=== PATIENT | female | born 1955 | race Caucasian/White ===

== ENCOUNTER 2016-06-01 15:35 | Emergency (ER) | payer OTHER ==
--- NOTE | 2016-06-01 16:09 | EDM.PDOC ---
ED HPI LOWER BACK PAIN/INJURY - General Chief Complaint: Back Pain or Injury Stated Complaint: fell @ work 06/01/16 Time Seen by Provider: 06/01/16 16:07 Source of Information: Reports: Patient, RN, RN notes reviewed History Limitations: Reports: No limitations - History of Present Illness INITIAL COMMENTS - FREE TEXT/NARRATIVE: Arrives to ER from work by POV with complaint of pain in the coccyx area and head sustained from a fall at work. 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 She reports a "very brief" LOC. Denies nausea, vomiting, visual changes or neck pain. Admits to a headache. Symptom Onset Date: 06/01/16 Symptom Onset Time: 12:30 (approx. time) Timing/Duration: Reports: Sudden onset Location: Reports: other (tailbone) Quality: Reports: Ache Severity: severe Place of Occurrence: work Improves with: Reports: None Worsens with: Reports: None Context: Reports: fall Associated Symptoms: Reports: Denies symptoms - Related Data Allergies/ADRs: Allergies Allergy/AdvReac Type Severity Reaction Status Date / Time levofloxacin [From Levaquin] Allergy Unknown Other Verified 06/01/16 15:59 Home Meds: Home Meds Albuterol Sulfate 1.25 mg IH Q4HR PRN 06/01/16 [History] Aspirin 325 mg PO DAILY 06/01/16 [History] Budesonide/Formoterol [Symbicort 160-4.5 MCG] 2 puff IH BID 06/01/16 [History] Calcium Carbonate [Calcium] 750 mg PO BID 06/01/16 [History] Cholecalciferol (Vitamin D3) [Vitamin D] 5,000 unit PO DAILY 06/01/16 [History] Citalopram [Celexa] 40 mg PO DAILY 06/01/16 [History] Metoprolol Succinate [Toprol XL] 25 mg PO DAILY 06/01/16 [History] Oxybutynin [Oxybutynin ER] 5 mg PO DAILY 06/01/16 [History] Social & Family History - Family History Family Medical History: Noncontributory ED ROS GENERAL - Review of Systems Review Of Systems: ROS reveals no pertinent complaints other than HPI. ED EXAM,LOWER BACK PAIN/INJURY - Physical Exam Exam: See Below Exam Limited By: No limitations General Appearance: alert, WD/WN, no apparent distress Eye Exam: bilateral eye: normal inspection Ears: normal external exam, normal canal, hearing grossly normal, normal TMs Nose: normal inspection, normal mucosa, no blood Throat/Mouth: Normal inspection, Normal lips, Normal teeth, Normal gums, Normal oropharynx, Normal voice, No airway compromise Head: other (Tenderness to palpation at occipital scalp. No visible swelling, bruising or deformity. Skin is intact.) Neck: full range of motion Respiratory/Chest: no respiratory distress, lungs clear, normal breath sounds, no accessory muscle use, chest non-tender Cardiovascular: normal peripheral pulses, regular rate, rhythm, no edema, no gallop, no JVD, no murmur, no rub GI/Abdominal: normal bowel sounds, soft, non tender, no organomegaly, no distention, no abnormal bruit, no mass Back Exam: normal inspection, full range of motion, NT Extremities: other (acute tender to palpation at posterior elmer pelvis, sacrum and coccyx. No visible swelling, bruising or deformity. Skin is intact. ) Neurological: alert, normal mood/affect, normal dorsiflexion, CN II-XII intact, normal plantar flexion, normal gait, normal reflexes, no motor/sensory deficits , oriented x 3 Psychiatric: normal affect, normal mood Skin Exam: Warm, Dry, Intact, Normal color, No rash Course - Vital Signs Last Recorded V/S: Last Vital Signs Temp 36.6 C 06/01/16 16:11 Pulse 65 06/01/16 16:11 Resp 18 06/01/16 16:11 BP 137/94 H 06/01/16 16:11 Pulse Ox 97 06/01/16 16:11 - Radiology Interpretation Free Text/Narrative:: CT head: No sign of skull fracture or closed head injury per rad report. CT pelvis: No fractures per rad report. Departure - Departure Time of Disposition: 17:20 Disposition: Home, Self-Care 01 Condition: fair Clinical Impression: Work related injury, Concussion with brief loss of consciousness Sprain of sacroiliac joint Qualifiers: Encounter type: initial encounter Qualified Code(s): S33.6XXA - Sprain of sacroiliac joint, initial encounter Instructions: Concussion, Adult, [id number], Sacroiliac Joint Dysfunction Forms: ED Department Discharge Additional Instructions: Concussion activity precautions for 3 weeks, otherwise activities as tolerated. [place] 5mg/325mg *do not drive or work while the influence of this medication. Follow up in clinic in 4-5 days for recheck.
--- NOTE | 2016-06-01 16:58 | CT ---
Clinical history: 61-year-old female injured in a fall (brief loss of consciousness). TECHNIQUE: Volume acquisition of data emergency unenhanced CT scan of the head obtained with patient lying supine on the Siemens multi slice CT scanner [facility]. A ll data archived in the PACS system for storage and study (bone/brain windows). Interpretation: 1. Hyperostosis frontalis interna. Uniformly thick bony calvarium without sign of skull fracture, underlying brain contusion or epidura l/subdural hematoma. 2. Symmetric cerebral cortical atrophy with underlying mirror-image normal ventricular system. 3. Physiologic midline pineal and symmetric choroid plexus calcifications. 4. No ischemic infarcts or signs of acute intracerebral/intraventricular/subarachnoid bleed. 5. Atrophy but cerebellum and brainstem otherwise unremarkable. 6. Symmetric clear pneumatization of the mastoid and paranasal sinuses. CONCLUSION: No sign of skull fracture or closed head injury.
--- NOTE | 2016-06-01 17:06 | CT ---
Clinical history: 61-year-old menopausal female smoker (loss of consciousness) injuring pelvis, sacr um and coccyx posteriorly. "No skull fracture or closed head injury". Scan technique: Volume acquisition of data emergency unenhanced CT scan of the pelvis and proximal f emurs obtained with patient lying supine on the Siemens multi slice CT scanner [place], [place]. All data archived in the PAC system for storage, reformatting and study. Interpretation: 1. Dense atheromatous calcifications distal abdominal aorta and branching iliac arteries (no aneurys m or dissection). 2. Acetabular and femoral components total left hip prosthesis appear satisfactorily anchored. 3. Symmetric spacing normal-appearing SI joints and the right hip joint. 4. No sign of pelvic, sacral or coccygeal fracture. No segmental dislocation. 5. chronic reactive arthritic changes posterior articulating facets lower lumbar spine, bilaterally. CONCLUSION: No fractures.
[2016-06-01 18:12] VITALS: BP 140/80
== END 2016-06-01 18:05 | disposition home or self-care (01) ==
LOC: DL.ED 15:35
DX: S33.6XXA Sprain of sacroiliac joint, initial encounter (principal); S06.0X1A Concussion with loss of consciousness of 30 minutes or less, initial encounter; Z88.8 Allergy status to other drugs, medicaments and biological substances; Z79.82 Long term (current) use of aspirin; Z79.899 Other long term (current) drug therapy; W19.XXXA Unspecified fall, initial encounter
CPT/HCPCS: 70450; 72192; 99283

== ENCOUNTER 2017-08-08 05:58 | Day surgery (SDC) | payer OTHER ==
[2017-08-08] MEDS ORDERED: Midazolam 1 MG/ML 2 ML SDV IV ONE (05:59)
[2017-08-08] MEDS ORDERED: fentaNYL 100 MCG/2 ML SDV IV ONE (05:59)
[2017-08-08] MEDS ORDERED: Lactated Ringers 1,000 ML IV SCH (06:15)
[2017-08-08] MEDS ORDERED: Midazolam 1 MG/ML 2 ML SDV ONE (06:27)
[2017-08-08] MEDS ORDERED: fentaNYL 100 MCG/2 ML SDV ONE (06:28)
[2017-08-08] MEDS ORDERED: fentaNYL 100 MCG/2 ML SDV IVPUSH ONE ×4 (07:24→07:40)
[2017-08-08] MEDS ORDERED: Midazolam 1 MG/ML 2 ML SDV IVPUSH ONE ×2 (07:27→07:30)
--- NOTE | 2017-08-08 09:37 | OR ---
DATE: 08/08/2017 PREOPERATIVE DIAGNOSIS: Screening colonoscopy. POSTOPERATIVE DIAGNOSIS: Screening colonoscopy. PROCEDURES: Total colonoscopy with snare excision of 2 sigmoid polyps and cautery, destruction of 1 sigmoid polyp. ANESTHESIA: Conscious sedation. SPECIMEN: Polyps x2. FINDINGS: Moderate sigmoid diverticulosis and polyps x3. RECOMMENDATION: Followup screening colonoscopy, repeated 3 years. INDICATION FOR PROCEDURE: This 62-year-old female has not had a prior colonoscopy. She has no bowel function symptoms but does have a personal history of cervical uterine cancer. PROCEDURE IN DETAIL: After adequate preparation, a colonoscope was inserted into the rectum. This was passed all the way to the cecum. Confirmation of the cecum was made by visualization of the ileocecal valve, the light shining through the right lower quadrant, and by palpation. The bowel prep was good. On withdrawal of the scope, the only abnormalities noted were in the sigmoid colon. She had a relatively large 1-cm polyp pedunculated in the sigmoid colon. A snare was placed around this, clipped off, and retrieved for pathological evaluation. She had another small polyp that was easily snared, likewise clipped off, and retrieved. She had one polyp that was relatively broad-based along a haustral fold in the sigmoid. This simply was cauterized for destruction. Other than the polyps, the patient has a [id number] sigmoid diverticulosis. Rectal examination was normal. Anal examination showed some internal hemorrhoids. Air was suctioned from the colon and the scope removed. [facility] /[id number]
[2017-08-08 10:14] VITALS: BP 112/71
== END 2017-08-08 10:20 | disposition home or self-care (01) ==
LOC: DL.ENDO 05:58
PROVIDERS: ATTEND Surgery
DX: Z12.11 Encounter for screening for malignant neoplasm of colon (principal); D12.5 Benign neoplasm of sigmoid colon; K63.5 Polyp of colon; Z88.1 Allergy status to other antibiotic agents; K57.30 Diverticulosis of large intestine without perforation or abscess without bleeding; Z85.41 Personal history of malignant neoplasm of cervix uteri; Z83.71 Family history of colonic polyps
CPT/HCPCS: J2250; J3010; J7120

== ENCOUNTER 2023-05-30 01:06 | Emergency (ER) | payer MEDICARE, OTHER ==
[2023-05-30] MEDS: Sodium Chloride 0.9% 10 ML Syringe FLUSH PRN (01:17)
[2023-05-30 01:26] VITALS: BP 152/102; PULSE 124
[2023-05-30 01:26] LABS: BASOPHILS PERCENT AUTO 0.1 % (0.0-1.0); EOSINOPHILS PERCENT AUTO 0.1 % (1.0-3.0); HEMATOCRIT 42.1 % (37.0-47.0); HEMOGLOBIN 13.6 g/dL (12.0-16.0); LYMPHOCYTES PERCENT AUTO 7.4 % (20.5-50.1); MEAN CORPUSCULAR HEMOGLOBIN 29.6 pg (27.0-34.0); MEAN CORPUSCULAR HGB CONC 32.3 g/dL (33.0-35.0); MEAN CORPUSCULAR VOLUME 91.7 fL (80-100); MONOCYTES PERCENT AUTO 10.8 % (2-8); NEUTROPHILS PERCENT AUTO 81.6 % (42.2-75.2); PLATELET COUNT,PLT 434 10^3/uL (150-450); RED BLOOD CELL COUNT 4.59 10^6/uL (4.2-5.4); WHITE BLOOD CELL COUNT,WBC 17.5 10^3/uL (5.0-10.0)
[2023-05-30] MEDS: Albuterol/Ipratropium 3.0-0.5 MG/3 ML Neb Soln NEB ONE (01:34)
[2023-05-30] MEDS: methylPREDNISolone Sodium Succinate 125 MG/2 ML SDV IVPUSH ONE (01:34)
[2023-05-30 01:40] LABS: INR 1.4 (0.9-1.2); PROTHROMBIN TIME 14.3 SEC (9.0-12.0); PTT,PARTIAL THROMBOPLSTIN TIME 26.3 SEC (22.0-34.0)
[2023-05-30 01:43] LABS: ALBUMIN 2.9 g/dL (3.4-5.0); BILIRUBIN TOTAL 0.7 mg/dL (0.2-1.0); C-REACTIVE PROTEIN 12.08 ng/dL (<=0.50); CALCIUM 9.5 mg/dL (8.5-10.1); EST CRCL DRUG DOSING (CG) 37.6 mL/min; MAGNESIUM 1.6 mg/dL (1.8-2.4)
[2023-05-30 01:44] LABS: A/G RATIO 0.71
[2023-05-30 01:49] LABS: LACTIC ACID 2.7 mmol/L (0.4-2.0)
[2023-05-30] MEDS: Aspirin 81 MG Tab.Chew PO ONE (01:56)
[2023-05-30] MEDS: Magnesium Sulfate/Water 2 GM in Premix Bag 1 BAG IV ONE (01:57)
[2023-05-30 02:03] LABS: APPEARANCE,URINE CLOUDY (CLEAR); BILIRUBIN,URINE MODERATE (NEGATIVE); COLOR,URINE DARK YELLOW (YELLOW); GLUCOSE,URINE NEGATIVE (NEGATIVE); KETONES,URINE TRACE (NEGATIVE); LEUKOCYTE ESTERASE,URINE NEGATIVE (NEGATIVE); NITRITE,URINE NEGATIVE (NEGATIVE); OCCULT BLOOD,URINE MODERATE (NEGATIVE); PH,URINE 5.5 (5.0-9.0); PROTEIN,URINE >=300 (NEGATIVE)
[2023-05-30] MEDS: Piperacillin/Tazobactam 4.5 GM in Sodium Chloride 0.9% 100 ML IV ONE (02:03)
[2023-05-30 02:07] LABS: AMPHETAMINES,URINE NEGATIVE (NEGATIVE); BARBITURATES,URINE NEGATIVE (NEGATIVE); BENZODIAZEPINE,URINE NEGATIVE (NEGATIVE); MDMA (ECSTASY), URINE NEGATIVE (NEGATIVE); METHADONE,URINE NEGATIVE (NEGATIVE); METHAMPHETAMINES,URINE NEGATIVE (NEGATIVE); OPIATES,URINE NEGATIVE (NEGATIVE); OXYCODONE,URINE NEGATIVE (NEGATIVE); PHENCYCLIDINE,URINE NEGATIVE (NEGATIVE); TCA,URINE NEGATIVE (NEGATIVE)
[2023-05-30 02:09] LABS: CORONAVIRUS COVID-19 NAA NEGATIVE (NEGATIVE); INFLUENZA A NAA NEGATIVE (NEGATIVE); INFLUENZA B NAA NEGATIVE (NEGATIVE); RESPIRATORY SYNCYTIAL VIR NAA NEGATIVE (NEGATIVE)
[2023-05-30 02:14] LABS: AMORPHOUS SEDIMENT,URINE FEW /HPF (NOT SEEN); BACTERIA,URINE MODERATE /HPF (0-FEW/HPF); EPITHELIAL CELLS,URINE MANY /HPF (NOT SEEN); MUCUS,URINE MODERATE /LPF (NOT SEEN); RBC,URINE 0-5 /HPF (0-5); WBC,URINE 20-30 /HPF (0-5/HPF)
== END 2023-05-30 03:11 | disposition left against medical advice (07) ==
LOC: DL.ED 01:06
DX: I21.4 Non-ST elevation (NSTEMI) myocardial infarction (principal); J44.1 Chronic obstructive pulmonary disease with (acute) exacerbation; J15.9 Unspecified bacterial pneumonia; R79.89 Other specified abnormal findings of blood chemistry; J90 Pleural effusion, not elsewhere classified; I10 Essential (primary) hypertension; I25.2 Old myocardial infarction; F17.210 Nicotine dependence, cigarettes, uncomplicated; Z88.8 Allergy status to other drugs, medicaments and biological substances; Z79.82 Long term (current) use of aspirin; Z79.899 Other long term (current) drug therapy; Z90.49 Acquired absence of other specified parts of digestive tract
CPT/HCPCS: 0241U; 36415; 71045; 80053; 80305-QW; 81001; 83605; 83735; 83880; 84484; 85025; 85610; 85730; 86140; 87040; 93005; 93010; 96365; 96367; 96375; 99285; 99285-25; A9270-GY; J2543; J2930; J3475; J3490; J7620-GY

== ENCOUNTER 2023-07-17 12:04 | Inpatient (IN) | payer MEDICARE, OTHER ==
[2023-07-17] MEDS: Sodium Chloride 0.9% 10 ML Syringe FLUSH PRN (12:23)
[2023-07-17] MEDS: Sodium Chloride 0.9% 1,000 ML IV ONE (12:23)
[2023-07-17 12:31] LABS: BASOPHILS PERCENT AUTO 0.2 % (0.0-1.0); EOSINOPHILS PERCENT AUTO 0.9 % (1.0-3.0); HEMATOCRIT 41.9 % (37.0-47.0); LYMPHOCYTES PERCENT AUTO 14.7 % (20.5-50.1); MEAN CORPUSCULAR HEMOGLOBIN 28.6 pg (27.0-34.0); MEAN CORPUSCULAR VOLUME 92.1 fL (80-100); MONOCYTES PERCENT AUTO 10.8 % (2-8); NEUTROPHILS PERCENT AUTO 73.4 % (42.2-75.2); PLATELET COUNT,PLT 194 10^3/uL (150-450); RED BLOOD CELL COUNT 4.55 10^6/uL (4.2-5.4); WHITE BLOOD CELL COUNT,WBC 12.8 10^3/uL (5.0-10.0)
[2023-07-17 12:55] LABS: ALANINE AMINOTRANSFERASE,ALT 97 U/L (14-59); ALBUMIN 2.4 g/dL (3.4-5.0); ALKALINE PHOSPHATASE 68 U/L (46-116); ANION GAP 10.9 mEq/L (7-13); ASPARTATE AMNIOTRANSFERASE,AST 95 U/L (15-37); BILIRUBIN TOTAL 1.1 mg/dL (0.2-1.0); BLOOD UREA NITROGEN,BUN 39 mg/dL (7-18); BUN/CREATININE RATIO 34.8 (No establ ref range); CALCIUM 8.2 mg/dL (8.5-10.1); CARBON DIOXIDE,CO2 33 mmol/L (21-32); CHLORIDE,CL 103 mmol/L (98-107); CREATININE 1.12 mg/dL (0.55-1.02); GLUCOSE RANDOM 84 mg/dL (70-99); POTASSIUM,K 3.9 mmol/L (3.5-5.1); PROTEIN TOTAL,TP 5.3 g/dL (6.4-8.2); SODIUM,NA 143 mmol/L (136-145)
[2023-07-17 12:57] LABS: A/G RATIO 0.83; ESTIMATED GFR 53 mL/min (>=60)
[2023-07-17 13:07] VITALS: BP 130/90; PULSE 100
[2023-07-17 13:11] LABS: INR 1.8 (0.9-1.2); PROTHROMBIN TIME 18.4 SEC (9.0-12.0)
[2023-07-17 13:14] LABS: C-REACTIVE PROTEIN 2.19 ng/dL (<=0.50); MAGNESIUM 1.5 mg/dL (1.8-2.4)
[2023-07-17] MEDS: cefTRIAXone 1 GM Vial IVPUSH ONE (14:09)
[2023-07-17] MEDS: Azithromycin 500 MG in Sodium Chloride 0.9% 250 ML IV ONE (14:09)
[2023-07-17 15:33] LABS: O2 DELIVERY DEVICE NASAL CANNULA
[2023-07-17 15:36] LABS: ALLEN TEST PERFORMED; BASE EXCESS ARTERIAL -4 mmol/L ((-2)-(+3)); BICARBONATE,ARTERIAL 21.5 mmol/L (22-26); O2 SATURATION ARTERIAL 92 % (95-100); PCO2 ARTERIAL 45 mmHg (35-45); PO2 ARTERIAL 75 mmHg (70-100)
[2023-07-17] MEDS ORDERED: LORazepam 2 MG/ML SDV IVPUSH PRN ×2 (16:15→17:17)
[2023-07-17] MEDS: Permethrin 59 ML Bottle TOP ONE (16:19)
[2023-07-17] MEDS: Scopalamine 1mg/3day Transdermal Patch TOP ONE (16:37)
[2023-07-17] MEDS: Morphine 2 MG/ML SYRINGE IVPUSH PRN ×2 (16:37→18:02)
[2023-07-17] MEDS: Atropine 1% Ophth Soln 5 ML Bottle SL SCH (18:02)
[2023-07-17] MEDS ORDERED: Morphine 2 MG/ML SYRINGE IVPUSH PRN (18:20)
[2023-07-17] MEDS: LORazepam 2 MG/ML SDV IVPUSH PRN (21:10)
[2023-07-17] MEDS: Check Patch TRDERM SCH (22:54)
[2023-07-18] MEDS ORDERED: LORazepam 2 MG/ML SDV IVPUSH PRN ×2 (06:01→23:26)
[2023-07-18] MEDS: Sodium Chloride 0.9% 1,000 ML IV SCH (17:16)
[2023-07-18] MEDS: Morphine 4 MG/ML Syringe IVPUSH PRN (17:17)
[2023-07-19] MEDS: Morphine 4 MG/ML Syringe IVPUSH PRN (00:07)
== END 2023-07-19 01:05 | disposition expired | DRG 951 ==
LOC: DL.ED 12:04 → DL.MS 14:29 → DL.ED 14:59
PROVIDERS: ADMIT Internal Medicine; ATTEND Internal Medicine
DX: Z51.5 Encounter for palliative care (principal); G93.41 Metabolic encephalopathy; I10 Essential (primary) hypertension; J96.21 Acute and chronic respiratory failure with hypoxia; J96.22 Acute and chronic respiratory failure with hypercapnia; I24.9 Acute ischemic heart disease, unspecified; D68.9 Coagulation defect, unspecified; E86.0 Dehydration; Z66 Do not resuscitate; E78.5 Hyperlipidemia, unspecified; J44.9 Chronic obstructive pulmonary disease, unspecified; I25.2 Old myocardial infarction; D50.9 Iron deficiency anemia, unspecified; F32.A Depression, unspecified; M81.0 Age-related osteoporosis without current pathological fracture; J43.9 Emphysema, unspecified; M19.90 Unspecified osteoarthritis, unspecified site; D64.9 Anemia, unspecified; I50.9 Heart failure, unspecified; E83.42 Hypomagnesemia; E80.6 Other disorders of bilirubin metabolism; I11.0 Hypertensive heart disease with heart failure; D72.829 Elevated white blood cell count, unspecified; B85.2 Pediculosis, unspecified; R74.01 Elevation of levels of liver transaminase levels; E88.09 Other disorders of plasma-protein metabolism, not elsewhere classified; Z95.5 Presence of coronary angioplasty implant and graft; Z90.49 Acquired absence of other specified parts of digestive tract; Z88.1 Allergy status to other antibiotic agents; Z79.02 Long term (current) use of antithrombotics/antiplatelets; Z87.891 Personal history of nicotine dependence; Z79.82 Long term (current) use of aspirin; Z96.649 Presence of unspecified artificial hip joint; Z79.899 Other long term (current) drug therapy; W01.0XXA Fall on same level from slipping, tripping and stumbling without subsequent striking against object, initial encounter
CPT/HCPCS: 36415; 36600; 70450; 71045; 72125; 72170; 80053; 82550; 82803; 83605; 83690; 83735; 83880; 84484; 85025; 85610; 86140; 87040; 93005; 93010; 96361; 96374; 96375; 99223; 99233; 99238; 99285; 99285-25; A9270-GY; J0456; J0696; J2060; J2270; J3490; J7030; J7050